=== PATIENT | male | born 1990 | race Caucasian/White ===

== ENCOUNTER 2017-03-11 21:12 | Emergency (ER) | payer OTHER ==
[2017-03-11] MEDS ORDERED: 0.9 % SODIUM CHLORIDE 1,000 ML IV ONE (21:27)
[2017-03-11] MEDS: 0.9 % SODIUM CHLORIDE 1,000 ML IV ONE (21:28)
[2017-03-11 22:01] LABS: BASOPHILS % 0.7 (0.0-1.5); EOSINOPHILS % 1.6 % (0.0-6.8); MEAN CORPUSCULAR HEMOGLOBIN 29.9 pg (28.0-34.0); MEAN CORPUSCULAR VOLUME 86.2 fl (80.0-100.0); MONOCYTES % 5.1 % (0.0-11.0)
[2017-03-11 22:17] LABS: eGFR (African) > 60; eGFR (Non-African) > 60
--- NOTE | 2017-03-11 23:11 | ED Physician Documentation ---
Syncope/Near Syncope - HISTORIAN Historian: patient, parent - HPI Stated Complaint: Dizziness/Diaphoresis Chief Complaint: Syncope Additional Information: near syncope diaphoresis weakness Witnessed: Yes Witnessed By: friend, bystander Position at Time of Episode: standing (working hard diaphoresis plenty fluids but recently dietary chg for wt loss for ) Symptoms Prior to Episode: light-headed, nausea, racing heart (orthostatic hr went from 70-90-no bp chgf but healthy hard working lean body mass). denies: chest pain, palpitations Character of Events(s): felt faint. denies: lost consciousness, became unresponsive, collapsed Symptoms after Event: denies: confused after event, incontinent of urine, breathing shallow Location of Injury: none Associated Symptoms: nausea, light-headedness, dizziness - ROS CONST: denies: recent illness MS/SKIN/LYMPH: denies: joint pain, leg swelling, rash, swollen glands, ankle swelling NEURO/PSYCH: denies: confusion, anxiety, depression - PAST HX Cardiac Disease: none PE Risk Factors: none Other History: denies: CVA Surgeries/Procedures: none Immunizations: UTD - SOCIAL HX Smoking History: non-smoker Alcohol Use: none Drug Use: none - FAMILY HX Family History: none - VITAL SIGNS Vital Signs: Vital Signs Temp Pulse Resp BP Pulse Ox 97 F L 74 18 130/76 96 03/11/17 21:15 03/11/17 22:27 03/11/17 21:15 03/11/17 21:20 03/11/17 21:15 - REVIEWED ASSESSMENTS Nursing Assessment Reviewed: Yes Vitals Reviewed: Yes ED Results Lab/Radiology - Lab Results Lab Results: Lab Results 03/11/17 03/11/17 21:27 21:27 WBC 9.60 K/ul K/ul (4.00-12.00) RBC 5.08 M/ul M/ul (3.90-5.20) Hgb 15.2 g/dL g/dL (12.0-18.0) Hct 43.8 % % (37.0-53.0) MCV 86.2 fl fl (80.0-100.0) MCH 29.9 pg pg (28.0-34.0) MCHC 34.7 g/dL g/dL (30.0-36.0) RDW 13.2 % % (11.3-14.3) Plt Count 319 K/mm3 K/mm3 (130-400) Neut % (Auto) 62.4 % % (39.0-79.0) Lymph % (Auto) 29.1 % % (16.0-50.0) Park % (Auto) 5.1 % % (0.0-11.0) Eos % (Auto) 1.6 % % (0.0-6.8) Baso % (Auto) 0.7 (0.0-1.5) Neut # (Auto) 6.0 # k/uL # k/uL (1.4-7.7) Lymph # (Auto) 2.8 # k/uL # k/uL (0.6-4.0) Park # (Auto) 0.5 # k/uL # k/uL (0.0-0.9) Eos # (Auto) 0.2 # k/uL # k/uL (0.0-0.6) Baso # (Auto) 0.1 # k/uL # k/uL (0.0-0.5) Reactive Lymphs % 1.1 % % (0.0-5.0) Reactive Lymphs # 0.1 # k/uL # k/uL (0.0-0.8) Sodium 140 mmol/L mmol/L (136-145) Potassium 3.7 mmol/L mmol/L (3.5-5.0) Chloride 101 mmol/L mmol/L (98-110) Carbon Dioxide 28 mmol/L mmol/L (20-32) BUN 12 mg/dL mg/dL (10-26) Creatinine 1.1 mg/dL mg/dL (0.4-1.5) Estimated Creat Clear 125 Est GFR ( Amer) > 60 (60 - ) Est GFR (Non-Af Amer) > 60 (60 - ) Glucose 135 mg/dL H mg/dL (70-99) Calcium 10.6 mg/dL H mg/dL (8.5-10.5) Total Bilirubin 0.7 mg/dL mg/dL (0.2-1.2) AST 19 U/L U/L (0-41) ALT 26 U/L U/L (0-45) Alkaline Phosphatase 74 U/L U/L (46-116) Total Protein 8.4 g/dL g/dL (6.0-8.5) Albumin 5.2 g/dL g/dL (3.0-5.5) - Orders Orders: ED Orders Category Date Time Status Continuous EKG monitoring Q1H Care 03/11/17 21:27 Active Orthostatics 1T Care 03/11/17 21:[address] IV Lock 1T Care 03/11/17 21:27 Completed CBC/PLATELET/DIFF Routine Lab 03/11/17 21:27 Completed CMP Routine Lab 03/11/17 21:27 Completed URINALYSIS Routine Lab 03/11/17 22:42 Ordered 0.9 % Sodium Chloride [Normal Saline] 1,000 ml Med 03/11/17 21:27 Discontinued IV .STK-MED 0.9 % Sodium Chloride [Normal Saline] 1,000 ml Med 03/11/17 21:27 Discontinued IV Q1H Syncope Physical Exam - Physical Exam General Appearance: mild distress. No: anxious, lethargic, hyperventilating EENT: nml eye inspection Neck/Back: neck supple, non-tender, no carotid bruit. No: cerv. lymphadenopathy Respiratory: no resp distress, chest non-tender, breath sounds normal CVS: reg rate & rhythm, heart sounds normal Abdomen: non-tender, no distention. No: tenderness Skin: diaphoresis Extremities: non-tender, normal range of motion, no evidence of injury - Neuro/Psych Higher Functions: alert, oriented x3, no evidence of acute CVA, mood/affect nml Sensorimotor: nml motor response, nml sensory response. denies: motor deficit, sensory deficit Discharge Clincal Impression: dehydrfation near syncope Referrals: Kalpana Viera MD [Primary Care Provider] - 2 Days Condition: Good Disposition: 01 HOME, SELF-CARE Decision to Admit: NO Decision Time: 23:10
[2017-03-11 23:15] VITALS: BP 128/72
[2017-03-12 05:24] LABS: APPEARANCE,URINE CLEAR (CLEAR); COLOR,URINE YELLOW (YELLOW); OCCULT BLOOD,URINE NEGATIVE (NEGATIVE); PH URINE 5.5 (5.0 - 8.0); UROBILINOGEN URINE 0.2 Eu (0.2-1.0)
== END 2017-03-11 23:14 | disposition home or self-care (01) ==
LOC: ED 21:12
DX: R55 Syncope and collapse (principal); E86.0 Dehydration
CPT/HCPCS: 80053; 81002; 85025; 96360; 99283; J7030; S1016